=== PATIENT | male | born 1950 | race Hispanic/Latino ===

== ENCOUNTER 2016-10-09 20:30 | Inpatient (IN) | payer SELFPAY ==
[~2016-10-09] VITALS: Ht 167.6 cm; Wt 43.2 kg
[~2016-10-09 20:30] MED LIST: ALDACTONE25 MG PO; ALDACTONE50 MG PO; BACTRIM DS1 TAB PO; CIPROFLOXACN500 MG PO; KLOR-CON M2020 MEQ PO; LACTULOSE PO; LASIX 20 MG TAB20 MG PO; LASIX 40 MG TAB40 MG PO
--- NOTE | 2016-10-09 20:45 | NUR ---
PT ADMITTED TO THE FLOOR AT THIS TIME UNDER 'S CARE FROM [facility];PT TRANSFERRED VIA WC ACCOMPANIED BY CORY,DYE HOUSE HAND;PT AMBULATED WITH STEADY GAIT TO BEDSIDE;PT NOTED TO BE MAINLY GREEK SPEAKING;PT COMPLAINS OF MILD PAIN,2/10 ON THE PAIN SCALE,TO RIGHT HIP UPON PALPATION;PT STATED THAT HE FELL AT [facility] AND HIT HIS HIP IN THE SHOWER;PT DENIES ANY NEED FOR PAIN MEDICATION AT THIS TIME;BRUSING NOTED TO RIGHT HIP AND LOWER BACK;GOWN PROVIDED AND ASSESSMENT COMPLETED;VS AND WT OBTAINED;PT EDUCATED TO ROOM AND CALL LIGHT SYSTEM AND VERBALIZES UNDERSTANDING;WATER AND FOOD PROVIDED;PT VOIDED 325CC OF CLEAR,YELLOW URINE;NO IV SITE CURRENTLY NOTED;PT DENIES ANY NEEDS AT THIS TIME;BED ALARM PUT INTO PLACE,PT IS A&O TO SELF ONLY;URINAL AT BEDSIDE;SAFETY PRECAUTIONS REINFORCED;BED IN LOWEST POSITION WITH CALL LIGHT IN REACH;WILL CONTINUE TO MONITOR
[2016-10-09 20:50] VITALS: BP 124/61
--- NOTE | 2016-10-09 22:40 | NUR ---
NOTIFED OF LACK OF ORDERS AND INFORMED THAT PT DOES NOT HAVE AN IV SITE;NO IV SITE TO BE PLACED AT THIS TIME PER MORRIS;NO NEW ORDERS RECEIEVED;WILL CONTINUE TO MONITOR
--- NOTE | 2016-10-10 00:01 | NUR ---
PT APPEARS TO BE SLEEPING AT THIS TIME;NO S/S OF DISTRESS NOTED;RESPIRATIONS EVEN AND UNLABORED ON RA;URINAL AT BEDSIDE;BED ALARM ON AND FALL PRECAUTIONS IN PLACE;CALL LIGHT WITHIN REACH;WILL CONTINUE TO MONITOR
[2016-10-10 05:54] LABS: HEMATOCRIT 37.2 % (39.0-50.0); HEMOGLOBIN 12.3 g/dl (14.0-18.0); IMMATURE GRANULOCYTES 0.4 % (0.0-1.0); MEAN CELL VOLUME 91.9 fL CALC (80.0-100.0); MEAN CORPUSCULAR HGB 30.4 pG CALC (26.0-32.0); MEAN CORPUSCULAR HGB CONC 33.1 g/L CALC (32.0-36.0); NEUT# 3.69 thou/uL (1.82-7.42); RED BLOOD COUNT 4.05 mill/uL (4.70-6.10); RED CELL DISTRI WIDTH 14.9 % (11.5-15.5)
[2016-10-10 05:55] VITALS: BP 108/59
--- NOTE | 2016-10-10 05:55 | NUR ---
PT RESTING IN SEMI FOWLERS POSITION;PT VOIDED 600CC OF CLEAR,YELLOW URINE;VS OBTAINED;PT DENIES ANY PAIN OR DISCOMFORTS;RESPIRATIONS EVEN AND UNLABORED ON RA;BED ALARM IN PLACE;URINAL AT BEDSIDE;PT RE-EDUCATED TO CALL FOR ASSISTANCE IF NEEDED;SAFETY PRECAUTIONS REINFORCED;BED IN LOWEST POSITION WITH CALL LIGHT IN REACH;WILL CONTINUE TO MONITOR
[2016-10-10 06:05] LABS: ALBUMIN 4.1 g/dL (3.2-5.0); ALKALINE PHOSPHATASE 180 u/l (38-126); ANION GAP 15 (6-22 (CALC)); BILIRUBIN, TOTAL 0.5 mg/dL (0.0-1.4); BUN 26 mg/dL (8-23); BUN/CREATININE RATIO 33 (12-20 (CALC)); CALCIUM 10.1 mg/dL (8.4-10.2); CARBON DIOXIDE 28 mmol/l (22-30); CHLORIDE 102 mmol/l (95-108); CREATININE 0.8 mg/dL (0.7-1.3); GFR > 60 ML/MIN (>=60 (CALC)); GFR FOR AFR.AMER. > 60 ML/MIN (>=60 (CALC)); GLUCOSE 104 mg/dL (82-115); POTASSIUM 4.7 mmol/l (3.5-5.1); SGOT/AST 40 u/l (19-48); SGPT/ALT 33 u/l (11-66); SODIUM 141 mmol/l (137-146); TOTAL PROTEIN 8.7 g/dL (6.3-8.2)
[2016-10-10 06:11] LABS: PROTHROMBIN TIME 10.8 SECONDS (9.0-12.5)
--- NOTE | 2016-10-10 07:00 | NUR ---
RECEIVED BEDSIDE REPORT FROM CHERI SANDOVAL. RESTING IN BED WITH EYES CLOSED, AWAKENS EASILY. RESPS EVEN AND UNLABORED ON ROOM AIR. VOICES NO C/O AT THIS TIME. PLAN OF CARE DISCUSSED. SAFETY PRECAUTIONS REINFORCED. BED IN LOWEST POSITION WITH WHEELS LOCKED. BED ALARM ON FOR SAFETY. CALL LIGHT WITHIN REACH. WILL CONTINUE TO MONITOR.
[2016-10-10 08:28] VITALS: BP 102/38
--- NOTE | 2016-10-10 09:40 | NUR ---
DR CACERES IN WITH PT, NEW ORDERS RECEIVED.
[2016-10-10] MEDS ORDERED: LASIX 20 MG TAB20 MG PO ×2 (10:04→10:21)
[2016-10-10] MEDS ORDERED: ALDACTONE25 MG PO ×2 (10:04→10:21)
[2016-10-10] MEDS ORDERED: LISINOPRIL2.5 MG PO ×2 (10:05→10:21)
[2016-10-10] MEDS ORDERED: FOLIC ACID1 M1 PO ×2 (10:05→10:21)
[2016-10-10] MEDS ORDERED: COREG3.125 MG PO (10:06)
[2016-10-10] MEDS ORDERED: B-1100 MG PO (10:06)
[2016-10-10] MEDS ORDERED: PEPCID20 MG PO ×2 (10:06→10:21)
[2016-10-10] MEDS ORDERED: MULTIVITAMI1 PO (10:21)
--- NOTE | 2016-10-10 12:00 | NUR ---
SITTING IN BEDSIDE CHAIR EATING LUNCH. RESPS EVEN AND UNLABORED ON ROOM AIR. DENIES PAIN OR DISCOMFORT. NOICES NO NEEDS AT THIS TIME. CALL LIGHT WITHIN REACH. ENCOURAGED PT TO CALL FOR ANY NEEDS.
[2016-10-10] MEDS ORDERED: ASPIRIN ADULT L81 M2 PO (12:23)
[2016-10-10 16:00] VITALS: BP 113/60
--- NOTE | 2016-10-10 16:40 | NUR ---
RESTING IN SUPINE POSITION WITH EYES CLOSED. VOICES NO C/O AT THIS TIME. CALL LIGHT WITHIN REACH. ENCOURAGED PT TO CALL FOR ANY NEEDS.
[2016-10-10 19:12] VITALS: BP 97/39
--- NOTE | 2016-10-10 19:34 | NUR ---
PATIENT RESTING IN BED AT THIS TIME-EASY TO AWAKEN. PATIENT IS ALERT AND ORIENTED TO PERSON AND PLACE. PATIENT IS FAROESE SPEAKING ONLY. PATIENT WITH NO COMPLAINTS AT THIS TIME. SAFETY PRECAUTIONS REINFORCED IN FAROESE. CALL LIGHT IN REACH. WILL CONT TO MONITOR. VS TAKEN AND RECORDED.
--- NOTE | 2016-10-11 00:27 | NUR ---
PATIENT APPEARS SLEEPING IN BED AT THIS TIME IN NO ACUTE DISTRESS WITH EYES CLOSED. CALL LIGHT IN REACH. WILL CONT TO MONITOR.
--- NOTE | 2016-10-11 04:20 | NUR ---
PATIENT APPEARS SLEEPING AT THIS TIME WITH EYES CLOSED IN NO ACUTE DISTRESS. CALL LIGHT IN REACH. WILL CONT TO MONITOR.
[2016-10-11 05:00] VITALS: BP 122/64
--- NOTE | 2016-10-11 05:00 | NUR ---
PATIENT IS AWAKE ALERT AND RESTING IN BED-URINAL EMPTIED FOR 900CC OF PRASAD URINE. PATIENT WITH NO COMPLAINTS AT THIS TIME. CALL LIGHT IN REACH. WILL CONT TO MONITOR.
--- NOTE | 2016-10-11 07:00 | NUR ---
RECEIVED BEDSIDE REPORT FROM EZ BOWENS. RESTING IN SUPINE POSITION WITH EYES CLOSED, AWAKENS EASILY. RESPS EVEN AND UNLABORED ON ROOM AIR. VOICES NO NEEDS AT THIS TIME. PLAN OF CARE DISCUSSED. SAFETY PRECAUTIONS REINFORCED. BED IN LOWEST POSITON WITH WHEELS LOCKED. CALL LIGHT WITHIN REACH. ENCOURAGED PT TO CALL FOR ANY NEEDS.
[2016-10-11 09:24] VITALS: BP 119/66
--- NOTE | 2016-10-11 09:30 | NUR ---
DR CACERES IN WITH PT, NO NEW ORDERS RECEIVED.
--- NOTE | 2016-10-11 16:15 | NUR ---
Discharge instructions given. Patient verbalizes understanding of same. Discharged in stable condition via Medical Transport to [facility] with *Other. All belongings sent with pt.
== END 2016-10-11 16:12 | DRG 432 ==
LOC: ENPENDDIS → MS2 20:30
PROVIDERS: ADMIT Internal Medicine; ATTEND Internal Medicine
DX: K70.11 Alcoholic hepatitis with ascites (principal); E43 Unspecified severe protein-calorie malnutrition; K70.31 Alcoholic cirrhosis of liver with ascites; I42.8 Other cardiomyopathies; I50.9 Heart failure, unspecified; Z68.1 Body mass index [BMI] 19.9 or less, adult; F10.20 Alcohol dependence, uncomplicated; Z59.0 Homelessness

== ENCOUNTER 2016-12-01 11:27 | Emergency (ER) | payer SELFPAY ==
[~2016-12-01] VITALS: Ht 167.6 cm; Wt 70.0 kg
[~2016-12-01 11:27] MED LIST changes: +ASPIRIN ADULT L81 M2 PO; +B-1100 MG PO; +COREG3.125 MG PO; +FOLIC ACID1 M1 PO; +LISINOPRIL2.5 MG PO; +MULTIVITAMI1 PO; +PEPCID20 MG PO
[2016-12-01 17:35] VITALS: BP 149/77
== END 2016-12-01 17:35 | DRG 563 ==
LOC: ED 11:27
PROC: 2W3EX1Z Immobilization of Right Hand using Splint (ICD-10-PCS; principal; 2016-12-01)
DX: S62.642A Nondisplaced fracture of proximal phalanx of right middle finger, initial encounter for closed fracture (principal); S62.346A Nondisplaced fracture of base of fifth metacarpal bone, right hand, initial encounter for closed fracture; S62.646A Nondisplaced fracture of proximal phalanx of right little finger, initial encounter for closed fracture; S62.640A Nondisplaced fracture of proximal phalanx of right index finger, initial encounter for closed fracture; Y04.2XXA Assault by strike against or bumped into by another person, initial encounter

== ENCOUNTER 2017-11-18 11:46 | Emergency (ER) | payer SELFPAY ==
[~2017-11-18] VITALS: Ht 152.4 cm; Wt 60.0 kg
[2017-11-18 12:37] LABS: HEMATOCRIT 32.5 % (39.0-50.0); HEMOGLOBIN 10.9 g/dl (14.0-18.0); IMMATURE GRANULOCYTES 0.7 % (0.0-1.0); MEAN CELL VOLUME 102.8 fL CALC (80.0-100.0); MEAN CORPUSCULAR HGB 34.5 pG CALC (26.0-32.0); MEAN CORPUSCULAR HGB CONC 33.5 g/L CALC (32.0-36.0); NEUT# 3.86 thou/uL (1.82-7.42); RED BLOOD COUNT 3.16 mill/uL (4.70-6.10); RED CELL DISTRI WIDTH 12.8 % (11.5-15.5)
[2017-11-18 12:57] LABS: ALBUMIN 3.6 g/dL (3.2-5.0); ALKALINE PHOSPHATASE 198 u/l (38-126); ANION GAP 14 (6-22 (CALC)); BILIRUBIN, TOTAL 0.5 mg/dL (0.0-1.4); BUN 7 mg/dL (8-23); BUN/CREATININE RATIO 11 (12-20 (CALC)); CARBON DIOXIDE 23 mmol/l (22-30); CHLORIDE 106 mmol/l (95-108); CREATININE 0.6 mg/dL (0.7-1.3); ETHYL ALCOHOL 236 mg/dl (0-30); GFR > 60 ML/MIN (>=60 (CALC)); GFR FOR AFR.AMER. > 60 ML/MIN (>=60 (CALC)); LIPASE 102 u/l (23-300); POTASSIUM 3.1 mmol/l (3.5-5.1); SGOT/AST 253 u/l (19-48); SGPT/ALT 86 u/l (11-66); SODIUM 140 mmol/l (137-146); TOTAL PROTEIN 7.4 g/dL (6.3-8.2)
[2017-11-18 15:50] LABS: URINE BILIRUBIN - DIPSTICK NEGATIVE (NEGATIVE); URINE BLOOD DIPSTICK TRACE-LYSED (NEGATIVE); URINE COLOR YELLOW; URINE GLUCOSE - DIPSTICK NEGATIVE (NEGATIVE); URINE KETONE NEGATIVE (NEGATIVE); URINE LEUK ESTERASE NEGATIVE (NEGATIVE); URINE NITRITE - DIPSTICK NEGATIVE (Negative); URINE PROTEIN - DIPSTICK TRACE mg/dL (NEG-TRACE); URINE SPECIFIC GRAVITY 1.015; URINE UROBILINOGEN - DIPSTICK 0.2 E.U./dL (0.2)
[2017-11-18 15:56] LABS: URINE CLARITY SL CLOUDY
[2017-11-18] MEDS ORDERED: CEPHALEXIN500 MG PO (18:18)
[2017-11-18 19:13] VITALS: BP 122/57
== END 2017-11-18 19:14 | disposition home or self-care (01) | DRG 605 ==
LOC: EDBD 11:46 → ED 11:46
PROVIDERS: Family Medicine
PROC: 0JQ13ZZ Repair Face Subcutaneous Tissue and Fascia, Percutaneous Approach (ICD-10-PCS; principal; 2017-11-18)
PROC: 0HQ1XZZ Repair Face Skin, External Approach (ICD-10-PCS; 2017-11-18)
DX: S01.81XA Laceration without foreign body of other part of head, initial encounter (principal); S02.2XXA Fracture of nasal bones, initial encounter for closed fracture; S01.21XA Laceration without foreign body of nose, initial encounter; S40.211A Abrasion of right shoulder, initial encounter; S70.212A Abrasion, left hip, initial encounter; S80.212A Abrasion, left knee, initial encounter; F10.10 Alcohol abuse, uncomplicated; V03.90XA Pedestrian on foot injured in collision with car, pick-up truck or van, unspecified whether traffic or nontraffic accident, initial encounter
CPT/HCPCS: Q9967

== ENCOUNTER 2018-08-25 15:17 | Observation (INO) | payer SELFPAY ==
[~2018-08-25] VITALS: Ht 152.4 cm; Wt 46.4 kg
[~2018-08-25 15:17] MED LIST changes: +CEPHALEXIN500 MG PO
--- NOTE | 2018-08-25 15:18 | NUR ---
PT TO ROOM VIA EMS
[2018-08-25] MEDS ORDERED: AUGMENTIN875TAB PO (15:39)
--- NOTE | 2018-08-25 15:50 | NUR ---
Pt received tetanus November 2017 therefore not needed and returned to [facility]. Officer Cliff at bedside with Leonila from animal control. Leonila advised that the dog has been captured and will be quarantined for 10 days therefore rabies vaccinations are not necessary at this time. If something changes within the quarantine period she will notify us. EDP notified. Rabavert and rabies immune globulin returned [facility] the [facility]. Pharmacy notified of counts possibly being off d/t return of these medications.
--- NOTE | 2018-08-25 15:54 | NUR ---
OFFICERS HERE TO SPEAK WITH PT, THEY HAVE DOG QUARANTINED.
--- NOTE | 2018-08-25 15:55 | NUR ---
Pt moved to room # 9 for higher level of care.
[2018-08-25 16:30] LABS: HEMATOCRIT 35.7 % (39.0-50.0); HEMOGLOBIN 11.9 g/dl (14.0-18.0); IMMATURE GRANULOCYTES 0.3 % (0.0-5.0); MEAN CELL VOLUME 100.8 fL CALC (80.0-100.0); MEAN CORPUSCULAR HGB 33.6 pG CALC (26.0-32.0); MEAN CORPUSCULAR HGB CONC 33.3 g/L CALC (32.0-36.0); NEUT# 6.12 thou/uL (1.82-7.42); RED BLOOD COUNT 3.54 mill/uL (4.70-6.10)
[2018-08-25 16:59] LABS: ANION GAP 20 (6-22 (CALC)); BUN 15 mg/dL (8-23); BUN/CREATININE RATIO 21 (12-20 (CALC)); CARBON DIOXIDE 24 mmol/l (22-30); CHLORIDE 102 mmol/l (95-108); CREATININE 0.7 mg/dL (0.7-1.3); GFR > 60 ML/MIN (>=60 (CALC)); GFR FOR AFR.AMER. > 60 ML/MIN (>=60 (CALC)); SODIUM 142 mmol/l (137-146)
[2018-08-25 17:01] LABS: POTASSIUM 4.3 mmol/l (3.5-5.1)
--- NOTE | 2018-08-25 17:07 | NUR ---
WOUND CLEANED PER DR. FORMAN AND DRESSING APPLIED. PT PLACED IN GOWN AND WARM BLANKETS GIVEN. 2ND IV BEGUN FOR MVI/THIAMINE. VANCOMYACIN IS INFUSING IN OTHER IV SITE
--- NOTE | 2018-08-25 17:15 | NUR ---
UNABLE TO OBTAIN MVI FROM [facility] , SOFT WORK CIGAR MACHINE OPERATOR NOTIFIED, WILL JUST USE THIAMINE AND FLUIDS AND USE MVI IN 2ND BAG
[2018-08-25 17:51] VITALS: BP 142/73
--- NOTE | 2018-08-25 18:00 | NUR ---
PT TRANSPORTED TO [facility] VIA STRETCHER ACCOMPIANED BY GOGO ZHU @[id number]. PT AMBULATED FROM STRETCHER TO BED W/ ASSISTANCE. VS DONE. PT A/O X3. SPEECH IS CLEAR. WELSH SPEAKING ONLY. RESP EVEN AND UNLABORED. LUNG SOUNDS CLEAR. BOWEL SOUNDS ACTIVE X4. STRONG RADIAL AND PEDAL PULSES. #20 LAC AND #22 RAC SL. FLUSHED AND PATENT. SITES APPEAR HEALTHY. PT HAS LUKAS WRAP TO RT MEDICAL THIGH,CDI. PT C/O PAIN TO RT THIGH 4 OUT OF 10 ON PAIN SCALE. REPOSITIONED FOR COMFORT. PT DENIES ANY FURTHER NEEDS. POC DISCUSSED. SAFETY PRECAUTIONS IN PLACE. CALL LIGHT IN REACH. WILL CONTINUE TO MONTIOR.
--- NOTE | 2018-08-25 19:00 | NUR ---
RECEIVED REPORT FROM NURSE HERBERT, PATIENT RESTING IN BED, EYES CLOSED NO DISCOMFORTS NOTED AT THIS TIME.
[2018-08-25 19:10] VITALS: BP 131/67
--- NOTE | 2018-08-25 19:34 | NUR ---
IV ON THE RAC WAS ACCIDENTALLY PULLED, CATHETER INTACT, IV SITE CLEANED.
--- NOTE | 2018-08-25 21:30 | NUR ---
PATIENT RESTING IN BED, BELARUSIAN SPEAKING ONLY C/O PAIN ON RT THIGH, MEDICATED WITH PRN TRAMADOL, WILL REEVALUATE, WITH AN ONGOING IV OF D5 1/2 @75 CC/HR, INFUSING WELL ON LAC, WITH SMALL AMOUMT OF SANGUINOUS DRAINAGE ON OUSIDE OF THE DRESSING, WOUND CLEANED WITH SALINE APPLIED NON ADHERENT DRESSING,COVERED WITH ABD AND KERLIX WRAP WITH LUKAS. CALL LIGHT WITHIN REACH
[2018-08-25 21:59] LABS: BARBITURATES NEGATIVE (NEGATIVE); COCAINE NEGATIVE (NEGATIVE); METHADONE NEGATIVE (NEGATIVE); OXCYCODONE NEGATIVE (NEGATIVE); TETRAHYDROCANNABIONOL NEGATIVE (NEGATIVE); TRICYLIC ANTIDEPRESSANTS NEGATIVE (NEGATIVE)
--- NOTE | 2018-08-25 23:50 | NUR ---
PATIENT VOMITED SMALL AMOUNT OF FOOD EATEN FOR DINNER, PRN ZOFRAN GIVEN.
[2018-08-26 00:31] VITALS: BP 140/70
[2018-08-26 04:20] VITALS: BP 148/54
--- NOTE | 2018-08-26 05:00 | NUR ---
patient resting in bed c/o pain on rt thigh prn tramadol given was effective call light at reach.
[2018-08-26 05:29] LABS: HEMATOCRIT 31.1 % (39.0-50.0); HEMOGLOBIN 10.4 g/dl (14.0-18.0); IMMATURE GRANULOCYTES 0.7 % (0.0-5.0); MEAN CELL VOLUME 101.6 fL CALC (80.0-100.0); MEAN CORPUSCULAR HGB CONC 33.4 g/L CALC (32.0-36.0); NEUT# 6.77 thou/uL (1.82-7.42); RED BLOOD COUNT 3.06 mill/uL (4.70-6.10); RED CELL DISTRI WIDTH 14.8 % (11.5-15.5)
[2018-08-26 06:13] LABS: ALBUMIN 3.8 g/dL (3.2-5.0); ALKALINE PHOSPHATASE 257 u/l (38-126); AMYLASE 102 u/l (30-110); ANION GAP 15 (6-22 (CALC)); BILIRUBIN, TOTAL 1.2 mg/dL (0.0-1.4); BUN 13 mg/dL (8-23); BUN/CREATININE RATIO 19 (12-20 (CALC)); CARBON DIOXIDE 25 mmol/l (22-30); CHLORIDE 104 mmol/l (95-108); CREATININE 0.7 mg/dL (0.7-1.3); GFR > 60 ML/MIN (>=60 (CALC)); GFR FOR AFR.AMER. > 60 ML/MIN (>=60 (CALC)); LIPASE 100 u/l (23-300); MAGNESIUM 1.4 mg/dL (1.6-2.3); SGOT/AST 139 u/l (19-48); SODIUM 140 mmol/l (137-146); TOTAL PROTEIN 7.4 g/dL (6.3-8.2)
--- NOTE | 2018-08-26 07:36 | NUR ---
REPORT RECEIVED FROM RETAIL SHIFT LEADER; PT LAYING IN BED AWAKE, WATCHING TV; DRESSING TO RT LEG INTACT; CALL DSOUZA AND URINAL IN REACH.
[2018-08-26 08:01] VITALS: BP 148/60
--- NOTE | 2018-08-26 08:25 | NUR ---
ASSESSMENT COMPLETED; ASISTED PT TO RESTROOM, WALKED WITH STEADY, SLOW GAIT; NOTED RED BLOOD DRIPPING FROM RT THIGH; AMBULATED BACK TO BED; DRESSING CHANGE DONE; TOLERATED WELL; USE WHITE BOARD ON WALL TO DETERMINE PAIN SCALE; NOD HIS HEAD AT PAIN SCALE 2; STATED SM BM; NOW SITTING UP IN BED WATCHING TV; IV FLUSHED WELL, SITE APPEARS HEALTHY; URINAL IN REACH; WILL CONTINUE TO MONITOR.
--- NOTE | 2018-08-26 09:36 | NUR ---
IVF INFUSHING, MYDALIS INTERPRET; PT VERBALIZE UNDERSTANDING
--- NOTE | 2018-08-26 12:00 | NUR ---
PT FOUND WALKING IN ROOM, IV REMOVED BY PT CATH INTACT; SITE APPEARS HEALTH;
--- NOTE | 2018-08-26 13:18 | NUR ---
DR DEVINE AT BEDSIDE TO DISCUSS POC
--- NOTE | 2018-08-26 15:46 | NUR ---
PT HAD A SHOWER; REDRESS WOUND, TOLERATE WELL; BANANA BAG INFUSING, IV SITE APPEARS HEALHTY; NO S/S OF DISTRESS NOTED; BED ALARM ACTIVE; CALL DSOUZA AND URINAL IN REACH.
[2018-08-26 16:00] VITALS: BP 152/65
--- NOTE | 2018-08-26 19:00 | NUR ---
RECEIVED REPORT FROM NURSE MILLS PT IN PLACE IN BED ALARM, CONTINUOUS TO SET OFF ALARM, [id number] ON SAFETY PRECAUTION, TO ASK ASSISTANCE. WILL CONTINUE TO MONITOR.
[2018-08-26 19:40] VITALS: BP 129/55
--- NOTE | 2018-08-26 20:00 | NUR ---
PATIENT ALERT AND ORIENTED, WITH AN ONGOING IV OF THIAMINE BAG AT 100CC/HR INFUSING WELL ON LFA G22, LAST BM 08/26, C/O PAIN ON RT MID THIGH PS 08/28, WILL MEDICATED.
--- NOTE | 2018-08-26 22:30 | NUR ---
PATIENT TRANSFERED TO ROOM 291, PATIENT ON BED ALARM, CALL LIGHT WITHIN REACH.
--- NOTE | 2018-08-27 | NUR ---
PATIENT RESTING IN BED, DUE ABX GIVEN DENIES PAIN OR DISCOMFORT AT THIS TIME, CALL LIGHT WITHIN REACH.
--- NOTE | 2018-08-27 04:35 | NUR ---
PATIENT AWAKE, SEVERAL TIMES SET OFF BED ALARM, GAIT UNSTEADY AT THIS TIME, REINFORCED ON SAFETY PRECAUITION.CALL LIGHT WITHIN REACH.
[2018-08-27 04:56] VITALS: BP 132/56
[2018-08-27 05:38] LABS: HEMATOCRIT 31.2 % (39.0-50.0); HEMOGLOBIN 10.5 g/dl (14.0-18.0); IMMATURE GRANULOCYTES 0.5 % (0.0-5.0); MEAN CELL VOLUME 100.6 fL CALC (80.0-100.0); MEAN CORPUSCULAR HGB 33.9 pG CALC (26.0-32.0); MEAN CORPUSCULAR HGB CONC 33.7 g/L CALC (32.0-36.0); NEUT# 5.83 thou/uL (1.82-7.42); RED BLOOD COUNT 3.1 mill/uL (4.70-6.10); RED CELL DISTRI WIDTH 14.2 % (11.5-15.5)
[2018-08-27 05:52] LABS: ALBUMIN 3.8 g/dL (3.2-5.0); ALKALINE PHOSPHATASE 194 u/l (38-126); ANION GAP 15 (6-22 (CALC)); BILIRUBIN, TOTAL 1.5 mg/dL (0.0-1.4); BUN 7 mg/dL (8-23); BUN/CREATININE RATIO 11 (12-20 (CALC)); CARBON DIOXIDE 27 mmol/l (22-30); CHLORIDE 98 mmol/l (95-108); CREATININE 0.6 mg/dL (0.7-1.3); GFR > 60 ML/MIN (>=60 (CALC)); GFR FOR AFR.AMER. > 60 ML/MIN (>=60 (CALC)); MAGNESIUM 1.6 mg/dL (1.6-2.3); POTASSIUM 3.8 mmol/l (3.5-5.1); SGOT/AST 112 u/l (19-48); SODIUM 135 mmol/l (137-146); TOTAL PROTEIN 7.7 g/dL (6.3-8.2)
[2018-08-27 08:59] VITALS: BP 141/51
--- NOTE | 2018-08-27 09:12 | NUR ---
ASSESSMENT COMPLETED; PT SITTING UP IN CHAIR WATCHING TV; RESP EVEN AND UNLABORED ON ROOM AIR; AM MEDS ADMINISTERE, IVF INFUSHING, IV SITE APPEARS HEALTHY; DRESSING TO RT INNER THIGH CDI; PT MADE SEVERAL ATTEMPTS TO LEAVE; CALL DSOUZA IN REACH; WILL CONTINUE TO MONITOR.
--- NOTE | 2018-08-27 09:49 | NUR ---
PT FOUND SITTING ON THE TOILET, BLOOD RUNNING DOWN HIS LT ARM, IV ON THE FLOOR, CATH INTACT; PT NONCOMPLIANT SAYS "HE'S GOING TO [place]" GREY TENDER @ BEDSIDE SEVERAL TIMES TO EXPLAIN TO PT TO STAY IN ROOM AND WAIT FOR DR; SNACKS AND SANDWICH PROVIDED; WILL CONTINUE TO MONITOR.
--- NOTE | 2018-08-27 11:39 | NUR ---
PT AGAIN WANTING TO LEAVE, SPECIAL DELIVERY WORKER REORIENT PT TO WAIT FOR WILL WILL CONTINUE TO MONITOR.
--- NOTE | 2018-08-27 11:53 | NUR ---
PT LAYING IN BED, OLD DRESSING REMOVED FROM RT INNER THIGH, DRY SCABB NOTED OVER WOUND, NO DRAINAGE NOTED; NEW DRESSING REAPPLY; TOLERATED WELL.
--- NOTE | 2018-08-27 13:12 | NUR ---
PT LEFT AM REGARDLESS OF DR'S ORDERS TO STAY; AMA PAPERS SIGN; PT WHEEL DOWN BY RESIDENT IN DIAGNOSTIC RADIOLOGY IN STABLE CONDITION. DR OSBORNE AWARE.
== END 2018-08-27 13:10 | disposition left against medical advice (07) | DRG 605 ==
LOC: ED 15:17 → ED-I 16:00 → MS2 16:13 → ED 16:13 → MS2 16:13
PROVIDERS: Family Medicine; ADMIT Internal Medicine Nephrology; ATTEND Internal Medicine Nephrology
DX: S71.151A Open bite, right thigh, initial encounter (principal); I42.8 Other cardiomyopathies; L08.9 Local infection of the skin and subcutaneous tissue, unspecified; F10.229 Alcohol dependence with intoxication, unspecified; K70.31 Alcoholic cirrhosis of liver with ascites; K70.11 Alcoholic hepatitis with ascites; D64.9 Anemia, unspecified; W54.0XXA Bitten by dog, initial encounter; Y92.410 Unspecified street and highway as the place of occurrence of the external cause; Y90.7 Blood alcohol level of 200-239 mg/100 ml; Z59.0 Homelessness
CPT/HCPCS: G0378; J1650

== ENCOUNTER 2018-12-28 21:31 | Emergency (ER) | payer SELFPAY ==
[~2018-12-28] VITALS: Ht 152.4 cm; Wt 50.0 kg
[~2018-12-28 21:31] MED LIST changes: +AUGMENTIN875TAB PO
[2018-12-28 23:58] VITALS: BP 128/65
== END 2018-12-29 00:09 | disposition home or self-care (01) | DRG 125 ==
LOC: ED 21:31
DX: S00.212A Abrasion of left eyelid and periocular area, initial encounter (principal); B19.20 Unspecified viral hepatitis C without hepatic coma; K74.60 Unspecified cirrhosis of liver; W19.XXXA Unspecified fall, initial encounter; Y92.410 Unspecified street and highway as the place of occurrence of the external cause

== ENCOUNTER 2019-04-27 07:43 | Emergency (ER) | payer SELFPAY ==
[~2019-04-27] VITALS: Ht 152.4 cm; Wt 68.0 kg
[2019-04-27 08:12] LABS: HEMATOCRIT 26.3 % (39.0-50.0); HEMOGLOBIN 8.4 g/dl (14.0-18.0); IMMATURE GRANULOCYTES 0.6 % (0.0-5.0); MEAN CELL VOLUME 104.4 fL CALC (80.0-100.0); MEAN CORPUSCULAR HGB 33.3 pG CALC (26.0-32.0); MEAN CORPUSCULAR HGB CONC 31.9 g/L CALC (32.0-36.0); NEUT# 18.33 thou/uL (1.82-7.42); RED BLOOD COUNT 2.52 mill/uL (4.70-6.10); RED CELL DISTRI WIDTH 13.2 % (11.5-15.5)
[2019-04-27 08:26] LABS: ALBUMIN 3.5 g/dL (3.2-5.0); ALKALINE PHOSPHATASE 318 u/l (38-126); ANION GAP 16 (6-22 (CALC)); BILIRUBIN, TOTAL 1.5 mg/dL (0.0-1.4); BUN 8 mg/dL (9-20); BUN/CREATININE RATIO 13 (12-20 (CALC)); CARBON DIOXIDE 22 mmol/l (22-30); CHLORIDE 103 mmol/l (95-108); CREATININE 0.6 mg/dL (0.7-1.3); GFR > 60 ML/MIN (>=60 (CALC)); GFR FOR AFR.AMER. > 60 ML/MIN (>=60 (CALC)); POTASSIUM 3.6 mmol/l (3.5-5.1); SGOT/AST 158 u/l (17-59); SODIUM 137 mmol/l (137-146); TOTAL PROTEIN 8.7 g/dL (6.3-8.2)
[2019-04-27 08:34] LABS: INTERNATIONAL NORMALIZED RATIO 1.3 RATIO (0.7-1.3); PROTHROMBIN TIME 13.1 SECONDS (9.0-12.5)
--- NOTE | 2019-04-27 09:02 | NUR ---
0815 CALLED TO ER FOR TRAUMA ALERT 0825 FLIGHT TEAM INTUBATED PATIENT WITH ET TUBE SIZE 7.0. SECURED 24 AT LIP SPO2 91%. PLACEMENT VERIFIED BY AUSCULTATION, ETCO2, AND XRAY. VENTILATED PATIENT WITH AMBU UNTIL PLACED ON TRANSPORT VENT. SPO2 97% PT TRANSPORTED 0805
[2019-04-27 09:05] VITALS: BP 169/99
[2019-04-27 09:22] LABS: ETHYL ALCOHOL 0 mg/dl (0-30)
== END 2019-04-27 08:38 | DRG 84 ==
LOC: ED 07:43
PROVIDERS: Emergency Medicine
PROC: 0BH17EZ Insertion of Endotracheal Airway into Trachea, Via Natural or Artificial Opening (ICD-10-PCS; principal; 2019-04-27)
DX: S06.5X9A Traumatic subdural hemorrhage with loss of consciousness of unspecified duration, initial encounter (principal); S06.6X9A Traumatic subarachnoid hemorrhage with loss of consciousness of unspecified duration, initial encounter; S00.12XA Contusion of left eyelid and periocular area, initial encounter; S00.11XA Contusion of right eyelid and periocular area, initial encounter; R40.2432 Glasgow coma scale score 3-8, at arrival to emergency department; X58.XXXA Exposure to other specified factors, initial encounter